=== PATIENT | female | born 1955 | race Caucasian/White ===

== ENCOUNTER 2021-01-15 18:35 | Inpatient (IN) | payer MEDICAID, OTHER ==
[~2021-01-15] VITALS: Ht 154.9 cm; Wt 86.9 kg
[2021-01-15] MEDS ORDERED: ONDANSETRON HCL 4MG/2ML INJ IV ONE (19:15)
[2021-01-15 20:19] LABS: BASOPHILS % 0.1 % (0.0-2.0); EOSINOPHILS % 0.2 % (0.0-5.0); HEMATOCRIT. 35.4 % (36.0-48.0); HEMOGLOBIN. 11.8 g/dL (12.0-16.0); MEAN CORPUSCULAR HEMOGLOBIN 29.9 pg (28.0-32.0); MEAN CORPUSCULAR VOLUME 89.2 fL (81.0-99.0); MEAN PLATELET VOLUME 10.2 fl (7.4-10.4); MONOCYTES % 6.9 % (2.0-8.0); NEUTROPHILS % 74.8 % (40.0-76.0); PLATELET 163 x1000/uL (130-400); RED BLOOD CELL COUNT 3.96 mill/uL (4.2-5.4); RED CELL DISTRIBUTION WIDTH 16.5 % (11.6-14.6)
[2021-01-15 20:26] LABS: CLARITY URINE CLEAR (CLEAR); COLOR URINE DARK YELLOW (YELLOW); KETONES URINE TRACE (NEGATIVE); LEUKOCYTE ESTERASE URINE NEGATIVE (NEGATIVE); NITRITE URINE NEGATIVE (NEGATIVE); OCCULT BLOOD URINE NEGATIVE (NEGATIVE); PROTEIN URINE NEGATIVE (NEGATIVE); UROBILINOGEN URINE 0.2 E.U./dL (0.2-1.0)
[2021-01-15 20:26] LABS: CHLORIDE 108 mEq/L (98-107)
[2021-01-15 20:28] LABS: INR 1.1; PROTHROMBIN TIME 11.5 sec (9.6-11.0)
[2021-01-15] MEDS ORDERED: SODIUM CHLORIDE 0.9% 1,000 ML IV ONE (20:30)
[2021-01-15 20:32] LABS: ETHANOL BLOOD < 10 mg/dL
[2021-01-15 20:34] LABS: LDL CHOLESTEROL 69 mg/dL (5-100)
[2021-01-15 20:37] LABS: *AMPHETAMINES SCREEN URINE NEGATIVE (NEGATIVE); *BARBITURATES SCREEN URINE NEGATIVE (NEGATIVE); *BENZODIAZEPINES SCREEN URINE NEGATIVE (NEGATIVE); *COCAINE SCREEN URINE NEGATIVE (NEGATIVE); METHADONE URINE SCREEN NEGATIVE (NEGATIVE); OPIATES URINE SCREEN NEGATIVE (NEGATIVE)
[2021-01-15 20:38] LABS: CANNABINOID URINE SCREEN PRESUMTIVE POSITIVE (NEGATIVE); PHENCYCLIDINE URINE SCREEN NEGATIVE (NEGATIVE)
[2021-01-15] MEDS ORDERED: SODIUM CHLORIDE 0.9% 1000ML BAG (SEPSIS BOLUS) IV ONE (21:00)
[2021-01-16] MEDS ORDERED: VANCOMYCIN 1 G PREMIX 200 ML IV ONE
[2021-01-16] MEDS ORDERED: LEVOFLOXACIN 750MG PREMIX 150 ML IV ONE
[2021-01-16 08:00] VITALS: BP_SYST 125; BP_DIAS 54; BP_DIAS 71
[2021-01-16] MEDS ORDERED: ASPI-1497 PO (08:18)
[2021-01-16] MEDS ORDERED: ALBU6.7H9 INH (08:18)
[2021-01-16] MEDS ORDERED: BENA5TAB6 PO (08:18)
[2021-01-16] MEDS ORDERED: METF-873 PO (08:18)
[2021-01-16] MEDS ORDERED: EXEN2AUT SQ (08:18)
[2021-01-16] MEDS ORDERED: OMEP10CA5 PO (08:18)
[2021-01-16] MEDS ORDERED: GLIP5TAB12 PO (08:18)
[2021-01-16] MEDS ORDERED: SERT20OR6 PO (08:18)
[2021-01-16] MEDS ORDERED: ACETAMINOPHEN 325MG TABLET PO PRN (09:30)
[2021-01-16] MEDS ORDERED: DEXTROSE 50% WATER 50ML SYRINGE IV PRN (09:30)
[2021-01-16] MEDS ORDERED: ONDANSETRON HCL 4MG/2ML INJ IV PRN (09:30)
[2021-01-16 12:00] VITALS: BP_SYST 134; BP_DIAS 73; BP_DIAS 74
[2021-01-16] MEDS: BLOOD SUGAR DIAGNOSTIC STRIP TEST SCH ×3 (12:02→20:35)
[2021-01-16] MEDS: TRAMADOL 50MG TABLET PO PRN (12:27)
[2021-01-16] MEDS: INSULIN LISPRO 100 UNITS/ML SUBCUT SCH ×3 (12:29→20:36)
[2021-01-16 16:00] VITALS: BP 122/68
[2021-01-16] MEDS ORDERED: CLAR10 PO (17:16)
[2021-01-16] MEDS ORDERED: MONT10TA32 PO (17:16)
[2021-01-16] MEDS ORDERED: SIMV-43 PO (17:16)
[2021-01-16] MEDS ORDERED: ALBUTEROL 6.7GM HFA INHALER INH SCH (17:45)
[2021-01-16] MEDS ORDERED: IPRATROPIUM/ALBUTEROL 0.5-3(2.5)MG/3ML NEB HHN PRN (17:45)
[2021-01-16] MEDS ORDERED: IPRA3AMP9 HHN (17:49)
[2021-01-16 20:00] VITALS: BP_SYST 111; BP_SYST 119; BP_SYST 128; BP_DIAS 72; BP_DIAS 77; BP_DIAS 84
[2021-01-16] MEDS: MONTELUKAST SODIUM 10MG TABLET PO SCH (20:34)
[2021-01-16] MEDS: FAMOTIDINE 20MG TABLET PO SCH (20:34)
[2021-01-16] MEDS: ENOXAPARIN 40MG/0.4ML SYR SUBCUT SCH (20:35)
[2021-01-17] VITALS: BP 114/68
[2021-01-17 04:00] VITALS: BP 128/72
[2021-01-17] MEDS: BLOOD SUGAR DIAGNOSTIC STRIP TEST SCH ×4 (06:39→20:27)
[2021-01-17] MEDS: INSULIN LISPRO 100 UNITS/ML SUBCUT SCH ×4 (06:40→20:27)
[2021-01-17] MEDS: GLIPIZIDE 10MG TABLET PO SCH ×2 (06:40→17:30)
[2021-01-17 08:00] VITALS: BP 114/78
[2021-01-17] MEDS: ASPIRIN 81MG TABLET PO SCH (08:43)
[2021-01-17] MEDS: LORATADINE 10MG TABLET PO SCH (08:43)
[2021-01-17] MEDS ORDERED: ASPIRIN 81MG EC TABLET PO SCH (09:00)
[2021-01-17] MEDS ORDERED: BENAZEPRIL 5MG TABLET PO SCH (09:00)
[2021-01-17] MEDS: BENAZEPRIL 10MG TABLET PO SCH (10:07)
[2021-01-17 12:00] VITALS: BP 116/77
[2021-01-17] MEDS: TRAMADOL 50MG TABLET PO PRN (15:03)
[2021-01-17 16:00] VITALS: BP 121/66
[2021-01-17 20:00] VITALS: BP 119/79
[2021-01-17] MEDS: MONTELUKAST SODIUM 10MG TABLET PO SCH (20:27)
[2021-01-17] MEDS: ENOXAPARIN 40MG/0.4ML SYR SUBCUT SCH (20:27)
[2021-01-17] MEDS: FAMOTIDINE 20MG TABLET PO SCH (20:27)
[2021-01-18] VITALS: BP 112/65
[2021-01-18 04:00] VITALS: BP 107/73
[2021-01-18] MEDS: BLOOD SUGAR DIAGNOSTIC STRIP TEST SCH ×2 (06:39→11:40)
[2021-01-18] MEDS: INSULIN LISPRO 100 UNITS/ML SUBCUT SCH ×2 (06:39→11:44)
[2021-01-18] MEDS: GLIPIZIDE 10MG TABLET PO SCH (07:00)
[2021-01-18 08:00] VITALS: BP 119/62
[2021-01-18] MEDS: BENAZEPRIL 10MG TABLET PO SCH (08:23)
[2021-01-18] MEDS: ASPIRIN 81MG TABLET PO SCH (08:23)
[2021-01-18] MEDS: LORATADINE 10MG TABLET PO SCH (08:23)
[2021-01-18 12:00] VITALS: BP 115/66
[2021-01-18] MEDS ORDERED: ALBU6.7H9 INH (14:13)
[2021-01-18 14:22] VITALS: BP 120/79
[2021-01-18] MEDS ORDERED: ATORVASTATIN CALCIUM 20MG TABLET PO SCH (21:00)
== END 2021-01-18 16:45 | disposition home or self-care (01) | DRG 52 ==
LOC: ER 18:35 → EDBEDREQ 19:20 → EDBEDREQTM 21:31 → EDBEDREQSVC 21:31 → EDBEDREQTM 22:42 → EDBEDREQSVC 22:42 → EDBEDREQTM 01-16 00:25 → EDBEDREQDT 01-16 00:25 → ENRESERV 01-16 05:45 → 7EST 01-16 07:59
PROVIDERS: ADMIT Internal Medicine; ATTEND Internal Medicine
DX: G93.41 Metabolic encephalopathy (principal); R47.01 Aphasia; E87.8 Other disorders of electrolyte and fluid balance, not elsewhere classified; G90.8 Other disorders of autonomic nervous system; E66.01 Morbid (severe) obesity due to excess calories; E78.00 Pure hypercholesterolemia, unspecified; E78.5 Hyperlipidemia, unspecified; F12.90 Cannabis use, unspecified, uncomplicated; J45.909 Unspecified asthma, uncomplicated; I10 Essential (primary) hypertension; E11.9 Type 2 diabetes mellitus without complications; I25.10 Atherosclerotic heart disease of native coronary artery without angina pectoris; I25.2 Old myocardial infarction; Z68.36 Body mass index [BMI] 36.0-36.9, adult; Z88.0 Allergy status to penicillin; Z71.3 Dietary counseling and surveillance
CPT/HCPCS: 36415; 70551; 71045; 72141; 72148; 80053; 80305; 80320; 81003; 82140; 82962; 83036; 83605; 83721; 84145; 84484; 85025; 92610; 93005; 93306; 97161; 99291; J1650; J1815; J1956; J2405; J3370; J7030; G0480